=== PATIENT | female | born 1960 | race Caucasian/White ===

== ENCOUNTER → 2024-02-07 11:52 | Outpatient (REF) | payer MEDICARE, BC, SELFPAY | LOC: HWRAD 11:52 | PROVIDERS: ATTENDING PHYSICIAN Nurse Practitioner Adult Health; FAMILY PHYSICIAN Family Medicine; REFERRING PHYSICIAN Internal Medicine Critical Care Medicine | DX: R91.8 Other nonspecific abnormal finding of lung field (principal) | CPT/HCPCS: 71250 ==

== ENCOUNTER 2024-02-14 06:12 | Day surgery (SDC) | payer MEDICARE, BC, SELFPAY ==
[2024-02-07 13:55] VITALS: BMI 21.1
[2024-02-07 14:22] LABS: INR 1.06; PT 13.6 Sec (11.4-14.6)
[2024-02-07 14:26] LABS: APTT 37.3 Sec (23.4-35.0)
--- NOTE | 2024-02-09 13:53 | PTCARENOTE ---
ABN ECG, Dr. Linder notified, no further requests made.
[2024-02-14] VITALS (11 sets, daily range): BP systolic 117–162; BP diastolic 74–97; BMI 20.3
--- NOTE | 2024-02-14 07:35 | PTCARENOTE ---
Patient received neb tx. IS was also done and result was 1500 ml. Berino body weight is 55kg. Will monitor patient.
== END 2024-02-14 12:03 | disposition home or self-care (01) ==
LOC: SDS 06:12
PROVIDERS: ATTENDING PHYSICIAN Internal Medicine Critical Care Medicine; FAMILY PHYSICIAN Family Medicine
DX: C34.12 Malignant neoplasm of upper lobe, left bronchus or lung (principal)
CPT/HCPCS: 31629; 31627; 31623; 31624; 31628; 31653; 31654; 88172; 88173; 88305; 36415; 71045; 76000; 81459; 85610; 85730; 87015; 87070; 87102; 87116; 87205; 88112; 88177; 88333; 88341; 88342; 93005; 94640; C1887